=== PATIENT | female | born 1970 | race Caucasian/White ===

== ENCOUNTER 2020-10-05 21:48 | Emergency (ER) | payer MEDICAID, SELFPAY ==
[2020-10-05 21:56] VITALS: BP 99/51; PULSE 71; RESP 20; TEMP 36.8; O2SAT 96; BMI 43.9
--- NOTE | 2020-10-05 22:04 | ED.EXTPRO ---
HPI - Extremity Problem General Chief complaint: Extremity Injury, Upper Stated complaint: shoulder inj Time Seen by Provider: 10/05/20 22:03 Source: patient Mode of arrival: ambulatory Limitations: no limitations History of Present Illness HPI Narrative: Patient tripped and fell hitting her right outstretched arm to the wall came here with pain in right shoulder avoiding to bring the arm close to the body because of pain keeping in abducted position. No other injuries patient complaining of tingling sensation in the right 4th and 5th finger no sensation loss on the shoulder MD Complaint: extremity pain Onset (ago): minute(s) Pain Consistency: constant Location: right Radiation: none Relieving factors: nothing Related Data Allergies Allergy/AdvReac Type Severity Reaction Status Date / Time penicillin G [PENICILLIN G] Allergy Unknown UNKNOWN Verified 10/06/20 00:29 ciprofloxacin [From Cipro] Allergy Unknown Verified 10/06/20 00:10 Review of Systems Review of Systems: Yes all other systems are reviewed and are negative PMFSH Past Medical History Medical History Anxiety Depression Multiple sclerosis Panic attack Social History Social History Alcohol intake: never Smoking Status: Never smoker Use of substances other than those prescribed or required for medical reasons: No Advance Directives: No Advance Directives Information Provided: Yes Physical Exam Vital Signs: Vital Signs: Last Vital Signs Temp 98.2 F 10/05/20 21:56 Pulse 71 10/05/20 21:56 Resp 17 10/06/20 00:31 BP 159/90 H 10/06/20 00:00 Pulse Ox 96 10/05/20 21:56 Body Mass Index 43.9 Const: General: cooperative, alert and acute distress moderate Nutritional Appearance: obese Orientation/consciousness: patient oriented x3 HENMT: Head: Yes normal to inspection, Yes normocephalic and Yes atraumatic Ears: hearing grossly normal bilaterally General nose exam: Normal external nose present Face and sinus: Yes normal facial exam Eyes: General: appearance normal, both eyes and all related structures Neck: Neck: Yes normal visual inspection Chest: Chest palpation & inspection: normal inspection of the chest and normal palpation of entire chest wall Resp: Effort & Inspection: normal respiratory effort Auscultation: clear to auscultation bilaterally Cardio: Rate: regular rate Rhythm: regular rhythm Heart sounds: S1 normal heart sound present and S2 normal heart sound present GI: Inspection: Yes normal to inspection Palpation (GI): Soft to palpation and nontender Back/Spine/Pelvis: Thoracic/Lumbar Spine: thoracic and lumbar spine normal to inspection Neuro: Other: Subjective numbness right 4th and 5th finger General: patient oriented x3 and Normal light touch and pain sensation Motor exam (neuro): 5/5 motor strength present throughout Extrem: General: Yes capillary refill normal Shoulder/upper arm images: 1. Right the proximal humerus tenderness in abducted position normal deltoid sensation 2. Tenderness proximal right humerus Procedures Orthopedic Joint Reduction Joint #1: Time Out Performed: Yes Side: right Joint Reduction Location: shoulder Shoulder Technique Used (if applicable): traction/counter-traction Technique used: traction/counter-traction Post-reduction neuro exam: intact Post-reduction vascular: intact Post Reduction X-Ray Obtained: Yes Post Reduction X-Ray Results: reduced Splint Applied: Yes Patient Tolerated Procedure: well Discharge Plan Discharge Clinical Impression: Dislocation of shoulder region Qualifiers: Encounter type: initial encounter Laterality: right Qualified Code(s): S43.004A - Unspecified dislocation of right shoulder joint, initial encounter Fracture of humerus Qualifiers: Encounter type: initial encounter Humerus Location: greater tuberosity Fracture type: closed Fracture alignment: displaced Laterality: right Qualified Code(s): S42.251A - Displaced fracture of greater tuberosity of right humerus, initial encounter for closed fracture Patient Disposition: Home, Self-Care Instructions: Shoulder Dislocation (ED) Referrals: Johan Lobato MD [Physician] - 1 week Interventions: ED Discharge Assessment Last Done: 10/06/20 02:25 Discharge Date/Time: 10/06/20 02:26
--- NOTE | 2020-10-05 22:30 | XR_ITS ---
EXAMINATION: XR SHOULDER, RIGHT CLINICAL INFORMATION: Fall. COMPARISON: None TECHNIQUE: Two views of the right shoulder. FINDINGS: There is inferior shoulder dislocation. Arm is held overhead, Luxatio erecta. There is a fracture of the humeral head. There is a displaced fracture fragment which is likely the humeral head present posteriorly and superiorly. XR/XR shoulder RT min 2V IMPRESSION: Inferior dislocation of humerus. There is a displaced fragment which is likely from humeral head.
[2020-10-06] VITALS: BP 159/90
[2020-10-06 00:31] VITALS: RESP 17
[2020-10-06] MEDS: Morphine Sulfate 4 MG/ML CARTRIDGE IVPUSH (00:31)
--- NOTE | 2020-10-06 00:51 | XR_ITS ---
EXAMINATION: XR SHOULDER, RIGHT CLINICAL INFORMATION: Post reduction. COMPARISON: 10/05/2020 TECHNIQUE: AP and Y views of the right shoulder. FINDINGS: There has been interval reduction of the previously dislocated right glenohumeral joint. There are a few bone fragments about the greater tuberosity farm [employer] representative of a nondisplaced or minimally displaced fracture. XR/XR shoulder RT min 2V IMPRESSION: Interval reduction of previously dislocated right glenohumeral joint. There are a few bone fragments present about the greater tuberosity likely farm loan representative of a minimally displaced or nondisplaced fracture.
--- NOTE | 2020-10-06 01:25 | PC.NURSE ---
PATIENT TOLERATED SHOULDER REDUCTION WELL. AWAITING RESULTS FROM IMAGING. WILL CONTINUE TO MONITOR.
--- NOTE | 2020-10-06 01:27 | PC.NURSE ---
AT BEDSIDE. SHOULDER REDUCED TO CORRECT PLACE, CONFIRMED BY XRAY. PLAN TO DISCHARGE HOME WITH FAMILY. WILL CONTINUE TO MONITOR UNTIL DISCHARGED; AWAITING D/C PAPERWORK.
== END 2020-10-06 02:26 | disposition home or self-care (01) ==
PROVIDERS: Emergency Provider Internal Medicine
DX: S42.251A Displaced fracture of greater tuberosity of right humerus, initial encounter for closed fracture (principal); W01.198A Fall on same level from slipping, tripping and stumbling with subsequent striking against other object, initial encounter; Y93.9 Activity, unspecified; Y92.019 Unspecified place in single-family (private) house as the place of occurrence of the external cause; Y99.9 Unspecified external cause status
CPT/HCPCS: 24505; 73030; 96372; 96374; 99284; J2270